=== PATIENT | male | born 1965 | race American Indian/Alaskan Native ===

== ENCOUNTER 2017-05-27 23:26 | Emergency (ER) | payer OTHER ==
[2017-05-27 23:37] VITALS: BMI 28.0
[2017-05-27 23:54] VITALS: RESP 18; TEMP 97.7; O2SAT 100
[2017-05-28] MEDS ORDERED: Albuterol-Ipratrop 3 mg / 0.5 (3 ml) UD IH STA (00:07)
--- NOTE | 2017-05-28 01:02 | ED PDOC ---
Arrival/HPI - General Chief Complaint: Shortness Of Breath Time Seen by Provider: 05/27/17 23:58 Historian: Patient - History of Present Illness Narrative History of Present Illness (Text): 05/28/17 00:59 52yo male with PMHx of Asthma present with complaint of wheezing and SOB since this morning. He states symptoms started while working outside this morning. States he used his inhaler multiple times today with relieve. states he was recently treated for cold symptoms 3weeks ago. He notes nonproductive cough earlier this morning, that resolved with treatment. He denies fever, chills, chest pain, LE edema, calf pain. He denies previous hospital admission secondary to Asthma. Never intubated and not steroid dependent. Past Medical History - Provider Review Nursing Documentation Reviewed: Yes - Pulmonary Hx Asthma: Yes - Psychiatric Hx Substance Use: Yes Family/Social History - Physician Review Nursing Documentation Reviewed: Yes Family/Social History: Unknown Family HX Smoking Status: n Hx Alcohol Use: No Hx Substance Use: Yes Substance used: MJ Allergies/Home Meds Allergies/Adverse Reactions: Allergies No Known Allergies Allergy (Verified 05/27/17 23:40) Home Medications: Home Meds Medication Instructions Recorded Confirmed Albuterol HFA [Ventolin HFA 90 1 puff IH Q4H PRN 05/27/17 05/27/17 mcg/actuation (8 g)] Budesonide/Formoterol Fumarate 1 aer IH DAILY 05/27/17 05/27/17 [Symbicort] Review of Systems - Physician Review All systems were reviewed & negative as marked: Yes - Review of Systems Constitutional: Normal Eyes: Normal ENT: Normal Respiratory: SOB, Cough, Wheezing. absent: Sputum Cardiovascular: Normal Gastrointestinal: Normal Genitourinary Male: Normal Musculoskeletal: Normal Skin: Normal Neurological: Normal Endocrine: Normal Hemo/Lymphatic: Normal Psychiatric: Normal Physical Exam Vital Signs Reviewed: Yes Vital Signs Temp Pulse Resp BP Pulse Ox 05/27/17 23:52 97.7 F 78 18 153/82 H 100 Temperature: Afebrile Blood Pressure: Normal Pulse: Regular Respiratory Rate: Normal Appearance: Positive for: Well-Appearing, Non-Toxic, Comfortable Pain Distress: None Mental Status: Positive for: Alert and Oriented X 3 - Systems Exam Head: Present: Atraumatic, Normocephalic Pupils: Present: PERRL Extroacular Muscles: Present: EOMI Conjunctiva: Present: Normal Mouth: Present: Moist Mucous Membranes Neck: Present: Normal Range of Motion Respiratory/Chest: Present: Clear to Auscultation, Good Air Exchange. No: Respiratory Distress, Accessory Muscle Use, Wheezes, Decreased Breath Sounds, Rales, Retracting, Rhonchi Cardiovascular: Present: Regular Rate and Rhythm, Normal S1, S2. No: Murmurs Abdomen: Present: Normal Bowel Sounds. No: Tenderness, Distention, Peritoneal Signs Back: Present: Normal Inspection Upper Extremity: Present: Normal Inspection. No: Cyanosis, Edema Lower Extremity: Present: Normal Inspection. No: Edema Neurological: Present: GCS=15, CN II-XII Intact, Speech Normal Skin: Present: Warm, Dry, Normal Color. No: Rashes Psychiatric: Present: Alert, Oriented x 3, Normal Insight, Normal Concentration Medical Decision Making ED Course and Treatment: 05/28/17 01:37 PT in ED for stated history. He was comfortable and in no respiratory distress. Not hypoxic. His lung was CTA b/l. He was noted having conversation without any distress. He was treated with medication and DC home with Albuterol and medro dose pack. Referred to his PMD. - Lab Interpretations Lab Results: Lab Results 05/28/17 00:22: Influenza Typ A,B (EIA) Negative for flu a/b - RAD Interpretation Radiology Orders: 05/28/17 00:07 CHEST PORTABLE [RAD] Stat - Medication Orders Current Medication Orders: Discontinued Medications Albuterol/Ipratropium (Duoneb 3 Mg/0.5 Mg (3 Ml) Ud) 3 ml IH STAT STA Stop: 05/28/17 00:08 Last Admin: 05/28/17 00:10 Dose: 3 ml Disposition/Present on Arrival - Present on Arrival Any Indicators Present on Arrival: No History of DVT/PE: No History of Uncontrolled Diabetes: No Urinary Catheter: No History of Decub. Ulcer: No History Surgical Site Infection Following: None - Disposition Have Diagnosis and Disposition been Completed?: Yes Diagnosis: Asthma attack Disposition: HOME/ ROUTINE Disposition Time: 01:35 Patient Plan: Discharge Condition: STABLE Discharge Instructions (ExitCare): Asthma (ED) Additional Instructions: Follow up with your doctor Return to ED for any new or worsening symptoms Prescriptions: Albuterol HFA [Ventolin HFA 90 mcg/actuation (8 g)] 2 puff IH [id number] #1 puff Methylprednisolone [Medrol Dose Pack (21 tabs)] 4 mg PO DAILY #21 mg Ref[place] [facility] [place] - Follow up with primary Forms: [employer] (French)
[2017-05-28 02:14] VITALS: BP 148/80; PULSE 74
--- NOTE | 2017-05-28 08:13 | RAD ---
HISTORY: SOB COMPARISON: No prior. FINDINGS: LUNGS: No active pulmonary disease. PLEURA: No significant pleural effusion identified, no pneumothorax apparent. CARDIOVASCULAR: Normal. OSSEOUS STRUCTURES: No significant abnormalities. VISUALIZED UPPER ABDOMEN: Normal. OTHER FINDINGS: None. IMPRESSION: No active disease.
== END 2017-05-28 02:05 | disposition home or self-care (01) ==
LOC: ED 23:26
DX: J45.909 Unspecified asthma, uncomplicated (principal)